=== PATIENT | female | born 1965 | race Caucasian/White ===

== ENCOUNTER 2025-03-20 22:39 | Inpatient (IN) | payer OTHER ==
[2025-03-20 23:36] LABS: PLATELET COUNT,PLT 417 10^3/uL (150-450); RED BLOOD CELL COUNT 3.93 10^6/uL (4.2-5.4); WHITE BLOOD CELL COUNT,WBC 7.2 10^3/uL (5.0-10.0)
[2025-03-20 23:38] LABS: BASOPHILS PERCENT AUTO 0.4 % (0.0-1.0); EOSINOPHILS PERCENT AUTO 0.3 % (1.0-3.0); LYMPHOCYTES PERCENT AUTO 10.0 % (20.5-50.1); MONOCYTES PERCENT AUTO 11.0 % (2-8); NEUTROPHILS PERCENT AUTO 78.3 % (42.2-75.2)
[2025-03-20 23:44] LABS: APPEARANCE,URINE CLEAR (CLEAR); GLUCOSE,URINE NEGATIVE (NEGATIVE); OCCULT BLOOD,URINE TRACE-LYSED (NEGATIVE)
[2025-03-21 00:17] LABS: EPITHELIAL CELLS,URINE FEW /HPF (NOT SEEN)
[2025-03-21 00:21] LABS: A/G RATIO 0.84; ALANINE AMINOTRANSFERASE,ALT 60.0 U/L (14-59); ASPARTATE AMNIOTRANSFERASE,AST 28.0 U/L (15-37); BILIRUBIN TOTAL 0.4 mg/dL (0.2-1.0); BLOOD UREA NITROGEN,BUN 6.0 mg/dL (7-18); CARBON DIOXIDE,CO2 26.0 mmol/L (21-32); CHLORIDE,CL 89.0 mmol/L (98-107); CREATININE 0.58 mg/dL (0.55-1.02); EST CRCL DRUG DOSING (CG) 92.82 mL/min; ESTIMATED GFR 104.0 mL/min (>=60); GLUCOSE RANDOM 119.0 mg/dL (70-99); POTASSIUM,K 3.6 mmol/L (3.5-5.1); PROTEIN TOTAL,TP 5.7 g/dL (6.4-8.2); SODIUM,NA 121.0 mmol/L (136-145)
[2025-03-21] MEDS: Furosemide 40 MG/4 ML VIAL IVPUSH ONE (00:36)
[2025-03-21] MEDS: Ketorolac 30 MG/ML SDV IVPUSH ONE (00:50)
[2025-03-21] MEDS ORDERED: ELETRIPTAN HYDROBROMIDE 40 MG PO PRN (01:35)
[2025-03-21] MEDS ORDERED: Metoprolol Tartrate 5 MG/5 ML SDV IVPUSH PRN (01:35)
[2025-03-21] MEDS ORDERED: hydrALAZINE 20 MG/ML SDV IVPUSH PRN (01:35)
[2025-03-21 01:45] LABS: BAND PERCENT MAN 10 %; LYMPHOCYTES PERCENT MAN 11 % (20-50); MONOCYTES PERCENT MAN 9 % (2-8); SEG NEUTROPHILS PERCENT MAN 80 % (42-75)
[2025-03-21] MEDS: Albumin Human 25 GM in Premix Bag 1 BAG IV SCH (02:07)
[2025-03-21 02:10] LABS: T4 FREE 1.32 ng/dL (0.76-1.46); TSH ULTRASENSITIVE 4.37 uIU/mL (0.36-3.74)
[2025-03-21] MEDS: Sennosides/Docusate Sodium 50-8.6 MG Tab PO PRN (04:13)
[2025-03-21] MEDS: Acetaminophen/oxyCODONE 325-5 MG Tab PO PRN (04:13)
[2025-03-21 06:45] LABS: BASOPHILS PERCENT AUTO 0.2 % (0.0-1.0); EOSINOPHILS PERCENT AUTO 0.4 % (1.0-3.0); LYMPHOCYTES PERCENT AUTO 10.4 % (20.5-50.1); MONOCYTES PERCENT AUTO 10.6 % (2-8); NEUTROPHILS PERCENT AUTO 78.4 % (42.2-75.2); PLATELET COUNT,PLT 418 10^3/uL (150-450); RED BLOOD CELL COUNT 3.82 10^6/uL (4.2-5.4); WHITE BLOOD CELL COUNT,WBC 5.6 10^3/uL (5.0-10.0)
[2025-03-21 07:08] LABS: ALANINE AMINOTRANSFERASE,ALT 55.0 U/L (14-59); ASPARTATE AMNIOTRANSFERASE,AST 23.0 U/L (15-37); BILIRUBIN TOTAL 0.5 mg/dL (0.2-1.0); BLOOD UREA NITROGEN,BUN 5.0 mg/dL (7-18); CARBON DIOXIDE,CO2 25.0 mmol/L (21-32); CREATININE 0.46 mg/dL (0.55-1.02); EST CRCL DRUG DOSING (CG) 117.03 mL/min; GLUCOSE RANDOM 118.0 mg/dL (70-99); POTASSIUM,K 3.0 mmol/L (3.5-5.1); PROTEIN TOTAL,TP 6.1 g/dL (6.4-8.2)
[2025-03-21 07:27] LABS: CHLORIDE,CL 87.0 mmol/L (98-107); SODIUM,NA 128.0 mmol/L (136-145)
[2025-03-21 07:30] LABS: A/G RATIO 1.18; ESTIMATED GFR 109.0 mL/min (>=60)
[2025-03-21] MEDS: buPROPion 150 MG Tab.ER PO SCH (08:25)
[2025-03-21] MEDS: Cholecalciferol (Vitamin D3) 25 MCG Tab PO SCH (08:33)
[2025-03-21] MEDS: Potassium Chloride 10 MEQ Tab.ER PO ONE (12:02)
[2025-03-21] MEDS: Ondansetron 4 MG/2 ML SDV IVPUSH PRN (12:10)
[2025-03-21] MEDS: Sodium Chloride 0.9% 10 ML Syringe FLUSH PRN (23:18)
[2025-03-22 06:50] LABS: BASOPHILS PERCENT AUTO 0.2 % (0.0-1.0); EOSINOPHILS PERCENT AUTO 0.5 % (1.0-3.0); LYMPHOCYTES PERCENT AUTO 9.7 % (20.5-50.1); MONOCYTES PERCENT AUTO 12.3 % (2-8); NEUTROPHILS PERCENT AUTO 77.3 % (42.2-75.2); PLATELET COUNT,PLT 442 10^3/uL (150-450); RED BLOOD CELL COUNT 3.69 10^6/uL (4.2-5.4); WHITE BLOOD CELL COUNT,WBC 6.5 10^3/uL (5.0-10.0)
[2025-03-22 07:23] LABS: A/G RATIO 2.1; ALANINE AMINOTRANSFERASE,ALT 39.0 U/L (14-59); ASPARTATE AMNIOTRANSFERASE,AST 12.0 U/L (15-37); BILIRUBIN TOTAL 0.6 mg/dL (0.2-1.0); BLOOD UREA NITROGEN,BUN 10.0 mg/dL (7-18); CARBON DIOXIDE,CO2 24.0 mmol/L (21-32); CHLORIDE,CL 95.0 mmol/L (98-107); CREATININE 0.6 mg/dL (0.55-1.02); EST CRCL DRUG DOSING (CG) 89.72 mL/min; GLUCOSE RANDOM 110.0 mg/dL (70-99); PROTEIN TOTAL,TP 6.9 g/dL (6.4-8.2)
[2025-03-22 07:31] LABS: POTASSIUM,K 3.6 mmol/L (3.5-5.1); SODIUM,NA 133.0 mmol/L (136-145)
[2025-03-22 07:34] LABS: ESTIMATED GFR 103.0 mL/min (>=60)
[2025-03-22] MEDS: Potassium Chloride 10 MEQ Tab.ER PO SCH (08:42)
[2025-03-22] MEDS: Magnesium Hydroxide 400 MG/5 ML Susp 30 ML Cup PO PRN (10:26)
[2025-03-22] MEDS: Lactulose Soln 10 GM/15 ML 30 ML UD Cup PO SCH (14:31)
[2025-03-22] MEDS: Amoxicillin/Clavulanate K 875-125 MG Tab PO SCH (14:32)
[2025-03-23 08:18] LABS: BASOPHILS PERCENT AUTO 0.1 % (0.0-1.0); EOSINOPHILS PERCENT AUTO 0.4 % (1.0-3.0); LYMPHOCYTES PERCENT AUTO 11.2 % (20.5-50.1); MONOCYTES PERCENT AUTO 14.2 % (2-8); NEUTROPHILS PERCENT AUTO 74.1 % (42.2-75.2); PLATELET COUNT,PLT 489 10^3/uL (150-450); RED BLOOD CELL COUNT 3.86 10^6/uL (4.2-5.4); WHITE BLOOD CELL COUNT,WBC 7.0 10^3/uL (5.0-10.0)
[2025-03-23 08:31] LABS: BLOOD UREA NITROGEN,BUN 20.0 mg/dL (7-18); CARBON DIOXIDE,CO2 25.0 mmol/L (21-32); CHLORIDE,CL 98.0 mmol/L (98-107); CREATININE 0.59 mg/dL (0.55-1.02); EST CRCL DRUG DOSING (CG) 90.1 mL/min; GLUCOSE RANDOM 116.0 mg/dL (70-99); POTASSIUM,K 4.3 mmol/L (3.5-5.1); SODIUM,NA 134.0 mmol/L (136-145)
[2025-03-23 08:35] LABS: ESTIMATED GFR 102.0 mL/min (>=60)
[2025-03-24 06:30] LABS: BLOOD UREA NITROGEN,BUN 32.0 mg/dL (7-18); CARBON DIOXIDE,CO2 23.0 mmol/L (21-32); CHLORIDE,CL 101.0 mmol/L (98-107); CREATININE 0.58 mg/dL (0.55-1.02); EST CRCL DRUG DOSING (CG) 91.66 mL/min; GLUCOSE RANDOM 115.0 mg/dL (70-99); POTASSIUM,K 4.6 mmol/L (3.5-5.1); SODIUM,NA 134.0 mmol/L (136-145)
[2025-03-24 06:33] LABS: ESTIMATED GFR 103.0 mL/min (>=60)
== END 2025-03-24 12:35 | disposition home or self-care (01) | DRG 640 ==
LOC: DL.ED 22:39 → DL.MS 03-21 00:52 → DL.ED 03-21 01:20
PROVIDERS: ADMIT Internal Medicine; ATTEND Internal Medicine
DX: E87.1 Hypo-osmolality and hyponatremia (principal); G92.8 Other toxic encephalopathy; N39.0 Urinary tract infection, site not specified; K59.00 Constipation, unspecified; G43.909 Migraine, unspecified, not intractable, without status migrainosus; F41.9 Anxiety disorder, unspecified; R73.9 Hyperglycemia, unspecified; R79.89 Other specified abnormal findings of blood chemistry; E88.09 Other disorders of plasma-protein metabolism, not elsewhere classified; Z79.899 Other long term (current) drug therapy; Z90.49 Acquired absence of other specified parts of digestive tract
CPT/HCPCS: 36415; 51701; 51702; 51798; 71045; 72070; 72100; 80048; 80053; 81001; 82306; 83735; 83880; 84300; 84439; 84443; 85025; 93306; 96374; 96375; 97161-GP; 97165-GO; 97530-GO; 99285; 99285-25; A9270-GY; C1758; J1171; J1650; J1885; J1938; J2405; P9047

== ENCOUNTER 2025-05-31 06:30 | Day surgery (SDC) | payer OTHER ==
[2025-05-31] MEDS ORDERED: Ketorolac 30 MG/ML SDV IVPUSH ONE (06:31)
[2025-05-31] MEDS ORDERED: Propofol 200 MG/20 ML SDV IV ONE (06:31)
[2025-05-31] MEDS ORDERED: Lactated Ringers 1,000 ML IV ONE (06:31)
[2025-05-31] MEDS: Lactated Ringers 1,000 ML IV SCH (07:02)
[2025-05-31] MEDS ORDERED: Propofol 200 MG/20 ML SDV ONE (09:49)
[2025-05-31] MEDS ORDERED: Ketorolac 30 MG/ML SDV ONE (09:51)
== END 2025-05-31 09:19 | disposition home or self-care (01) ==
LOC: DL.ENDO 06:30
PROVIDERS: ATTEND Internal Medicine Gastroenterology
DX: Z12.11 Encounter for screening for malignant neoplasm of colon (principal); G43.909 Migraine, unspecified, not intractable, without status migrainosus; F32.A Depression, unspecified; Z79.82 Long term (current) use of aspirin; Z79.899 Other long term (current) drug therapy; Z87.891 Personal history of nicotine dependence
CPT/HCPCS: 45378; J1885; J2704; J7120